=== PATIENT | female | born 1990 | race African-American/Black ===

== ENCOUNTER 2023-11-30 05:35 | Outpatient (CLI) | payer OTHER, SELFPAY | END 2023-11-30 05:36 | disposition home or self-care (01) | LOC: AMB 12-05 07:39 | PROVIDERS: Visit Provider Family Medicine | DX: S09.90XA Unspecified injury of head, initial encounter (principal); S09.93XA Unspecified injury of face, initial encounter; Y04.0XXA Assault by unarmed brawl or fight, initial encounter; Y92.9 Unspecified place or not applicable | CPT/HCPCS: A0425; A0429 ==

== ENCOUNTER 2023-11-30 05:59 | Emergency (ER) | payer OTHER, SELFPAY ==
[2023-11-30 06:19] VITALS: BP 123/88; PULSE 116; RESP 18; TEMP 37; O2SAT 99; BMI 22.9
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
[2023-11-30] MEDS: IBUPROFEN 200 MG TABLET 600 MG PO (07:24)
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
[2023-11-30] MEDS: LORazepam 1 MG TABLET PO (12:08)
[2023-11-30] MEDS: AZITHROMYCIN 250 MG TABLET 1000 MG PO (12:08)
[2023-11-30] MEDS: LIDOCAINE 1% 5 ml (pf) 5 ML VIAL 1 ML IM (12:08)
[2023-11-30] MEDS: cefTRIAXone 500 MG VIAL IM (12:08)
[2023-11-30] MEDS: LIDOCAINE/EPINEP/TETRACAINE 3 ML GEL..ML. TOPICAL (12:47)
--- NOTE | 2023-11-30 13:59 | PC.SOCIAL ---
Social work referral received. Pt is requesting information on clemente care and medical assistance. Pt does not have health insurance and is concerned about receiving a medical bill for services today. Pt has been in [place] for about 1 week and does not have an address to use in [place] for mail. Provided pt with [facility] clemente care application. Informed pt that she would need to apply for medical assistance as the application requires a denial/approval for medical assistance to be attached to the application. Provided pt with contact information for [employer] and contact information for [facility], if pt would like to connect with a [facility] navigator to complete the medical assistance application. Pt understands and does not have any further questions. Provided pt with a business card if she has any further questions.
== END 2023-11-30 13:45 | disposition home or self-care (01) ==
LOC: ED 08:23
PROVIDERS: Emergency Provider Student in an Organized Health Care Education/Training Program
DX: T74.21XA Adult sexual abuse, confirmed, initial encounter (principal); S01.412A Laceration without foreign body of left cheek and temporomandibular area, initial encounter
CPT/HCPCS: 12011; 70450; 70486; 96372; 99283; 99284; A9270; J0696